=== PATIENT | male | born 1950 | race Caucasian/White ===

== ENCOUNTER 2021-10-14 15:34 | Emergency (ER) | payer MEDICARE, OTHER | END 2021-10-14 18:15 | disposition home or self-care (01) | LOC: FER 15:34 | DX: U07.1 COVID-19 (principal); I10 Essential (primary) hypertension; E11.9 Type 2 diabetes mellitus without complications; Z88.1 Allergy status to other antibiotic agents | CPT/HCPCS: 71250; 93005 ==